=== PATIENT | male | born 1990 | race Caucasian/White ===

== ENCOUNTER 2022-11-15 20:00 | Outpatient (CLI) | payer OTHER, SELFPAY | END 2022-11-15 20:01 | disposition home or self-care (01) | LOC: SLEEP 11-16 06:25 | PROVIDERS: Visit Provider Emergency Medicine Emergency Medical Services | DX: R06.83 Snoring (principal); G47.33 Obstructive sleep apnea (adult) (pediatric) | CPT/HCPCS: 95810 ==

== ENCOUNTER 2023-01-10 20:00 | Outpatient (CLI) | payer OTHER, SELFPAY | END 2023-01-10 20:01 | disposition home or self-care (01) | LOC: SLEEP 01-11 05:13 | PROVIDERS: Visit Provider Family Medicine | DX: G47.33 Obstructive sleep apnea (adult) (pediatric) (principal) | CPT/HCPCS: 95811 ==